=== PATIENT | male | born 1970 | race Caucasian/White ===

== ENCOUNTER 2025-01-22 13:16 | Emergency (ER) | payer MEDICAID ==
[~2025-01-22] VITALS: Ht 170.2 cm; Wt 79.8 kg
--- NOTE | 2025-01-22 14:10 | Physician Documentation ---
History of Present Illness ~ Chief Complaint: Narcotic Withdrawl Stated Complaint: WITHDRAWAL FROM HEROIN Time Seen by MD: 14:00 [facility] 54-year-old male presents to the ED requesting to be started on Suboxone secondary to ongoing heroin use. States he is not from around here in his from [place] attempting to get clean. Medication Reconciliation Allergies: Coded Allergies: haloperidol (Verified Allergy, Unknown, muscle twitching, 01/22/25) Review of Systems All Other Systems at this time: Reviewed and Negative ROS As stated above in the HPI, otherwise all systems are reviewed and negative. Physical Exam Vital Signs: Temperature: 97.6, Source: Temporal, Heart Rate: 107, Respiratory Rate: 17, BP: 125/84, Pulse Oximetry: 98, Weight: 79.800 Physical Exam General: Alert, no apparent distress. Respiratory: Lungs clear, no respiratory distress. . Cardiovascular: Regular rate and rhythm, no murmurs. Gastrointestinal: Soft, nontender, nondistended. Bowels sounds present. Neurologic: Oriented x4. Psychiatric: anxious appearing Skin: Normal color, warm and dry. No edema, no ecchymosis. Progress Results/Orders Results/Orders Completed Orders - EZRA RICH NP Buprenorphine/Naloxone Sl Film (Suboxone (01/22/25 14:10) Medications Received in ER Medications (Trade) Dose Ordered Sig/Cintia Route PRN Reason Start Time Stop Time Status Last Admin Dose Admin (Suboxone 8MG-2MG SL film) 1 film NOW ONCE SL 01/22/25 14:10 01/22/25 14:11 DC 01/22/25 14:22 1 FILM Vital Signs 01/22/25 01/22/25 13:40 14:06 Temp 97.6 Pulse 107 Resp 17 17 B/P (MAP) 125/84 Pulse Ox 98 Medical Decision Making Findings This patient meets criteria for further evaluation by a drug recovery program. I will however bridge him so he can access those programs accordingly. Starting him on Suboxone today patient agrees to follow up with the recovery program Differential Dx:Considerations: Include: Alcohol withdrawl synd., Delerium tremens, Hallucinosis, Seizures, Anticholinergic poisoning, CVA, Dehydration, Depression, Drug induced psychosis, Electolyte imbalance, Encephalitis, Encephalopathy, Hepatitis, Hyperthermia, Intoxication-alcohol, Intoxication- other drug, Medical noncompliance, Personality disorder, Schizophrenia, Seizure disorder, Substance abuse disorder, Seizure disorder, Thiamine deficiency, Thyrotoxicosis, Other Departure Disposition: 01 HOME / SELF CARE / HOMELESS Impression: Primary Impression: Narcotic drug use Condition: Stable Discharge Instructions: Narcotic Withdrawal Referrals: NO PRIMARY CARE PROVIDER (PCP) Prescriptions Buprenorphine HCl/Naloxone HCl (Suboxone 12 mg-3 mg Sl Film) 12 Mg-3 Mg Film 1 STRIP SL BID for withdrawl for 14 Days, #28 STRIP 0 Refills Prov: EZRA RICH NP 01/22/25 Education Educated: Patient Educated regarding: diagnosis Signature Scribe Signature: g Attestation: Scribed for Ezra Rich Chief Of Pediatric Urology by Ezra Quispe NP . 01/22/25 14:28 EZRA RICH NP Jan 22, 2025 14:10
[2025-01-22] MEDS: buprenorphine/naloxone 8MG-2MG SUBlingual film SL ONE (14:22)
[2025-01-22] MEDS ORDERED: BUPR1FIL7 SL (14:26)
[2025-01-22 14:44] VITALS: BP 128/70; PULSE 92; RESP 16; TEMP 97.6; O2SAT 99
== END 2025-01-22 14:45 | disposition home or self-care (01) ==
LOC: ER 13:17
DX: F11.90 Opioid use, unspecified, uncomplicated (principal)
CPT/HCPCS: 99283